=== PATIENT | male | born 1960 | race African-American/Black ===

== ENCOUNTER 2017-09-05 12:30 | Emergency (ER) | payer OTHER | END 2017-09-05 16:30 | disposition home or self-care (01) | LOC: FTE 12:30 | DX: M79.601 Pain in right arm (principal); M79.641 Pain in right hand; I10 Essential (primary) hypertension; F17.210 Nicotine dependence, cigarettes, uncomplicated | CPT/HCPCS: 29125; 73090-RT; 73130-RT; 99283-25 ==